=== PATIENT | male | born 1985 | race Caucasian/White ===

== ENCOUNTER 2025-04-16 10:54 | Inpatient (IN) ==
--- NOTE | 2025-04-16 11:22 | Emergency Department Note ---
Impression & Plan Suicidal ideations, Thoughts of self-harm, Marijuana abuse ED Provider Note NAME: WENCESLAO LEOS AGE: 39 SEX: M : 1985 ARRIVES VIA: [employer] INFORMANT: Patient ED PROVIDER(S): Jonathan Kim DO CHIEF COMPLAINT: Wants to figure out who he is HPI: Patient is a 39-year-old male with a past medical history of esophagitis who presents to the ER brought in by police on a 302 as the felt unsafe. He does have 4 children. He notes that he is trying to find out who he is. He denies any suicidal or homicidal ideations. No auditory visual hallucinations. He notes he stopped going to work and quit his job. He admits to a history of anxiety and trouble sleeping. Denies any history of suicide attempts. Admits to marijuana use. No other drugs or alcohol. ADDITIONAL HISTORY OBTAINED: Per HPI Chronic Medical/Social Conditions Affecting Care: Per HPI PAST MEDICAL HISTORY:See Below PAST SURGICAL HISTORY:See Below FAMILY HISTORY:See Below SOCIAL HISTORY:See Below HOME MEDICATIONS:See Below ALLERGIES:See Below VITALS:See Below PHYSICAL EXAMINATION: GENERAL: Sitting up in bed, alert, well appearing, well nourished, no distress, non-toxic EYE EXAM: normal conjunctiva. OROPHARYNX: no exudate, no erythema, lips, buccal mucosa, and tongue normal and mucous membranes are moist NECK: supple, no nuchal rigidity, no adenopathy, non-tender LUNGS: Clear to auscultation. Normal chest wall mechanics HEART: no murmurs, S1 normal and S2 normal ABDOMEN: abdomen soft, non-tender, normo-active bowel sounds, no masses, no rebound or guarding. BACK: Back is symmetrical on inspection and there is no deformity, no midline tenderness, no CVA tenderness. SKIN: no rashes and no bruising UPPER EXTREMITIES: upper extremities are grossly normal. LOWER EXTREMITIES: No pitting edema. NEURO EXAM: Normal sensorium, cranial nerves II-XII grossly intact, normal speech, no gross weakness of arms, no gross weakness of legs. PSYCH: Denies any suicidal homicidal ideations. No auditory visual [place] MEDICAL DECISION MAKING: Patient is a 39-year-old male who presents to the ER for suicidal ideations with multiple plans on 302. He is agreeable to coming in on a 201. Labs showed no significant leukocytosis or anemia. BMP along with LFTs bilirubin and TSH was unremarkable. UA was clean. Tox was positive for amphetamines and benzos and marijuana. Alcohol negative. COVID-negative. Patient was accepted to 3 S. and will be admitted. Consults/Care Managements Discussions: Per MDM Triage Nursing notes reviewed. Limited review of prior medical records performed Vital Signs: reviewed and remarkable for no significant abnormalities Differential diagnosis: Mood disorder, infection, hypoglycemia, electrolyte abnormalities, cardiac sources, intracerebral event, toxicologic, trauma, neurologic, as well as other pathologies. ER treatment provided: See below Diagnostics interpreted by me include EKG and cardiac monitoring as listed below: -ECG: none -Laboratory studies:Interpreted by me as stated above in MDM and shown below. Imaging studies: Xrays: As interpreted by me:none CTs show: none Procedures:none Critical Care: None Past Med/Surg History Problem List (Updated 04/16/25 @ 17:30 by Jonathan Kim DO) Marijuana abuse (Acute) Thoughts of self-harm (Acute) Suicidal ideations (Acute) Obstruction of esophagus (Acute) Social History Smoking Status: Current every day smoker Tobacco Type: Cigarettes Preferred Language: Montenegrin Feels Safe at Home: Yes Gender Identity: Male Allergies Allergies Allergy/AdvReac Type Severity Reaction Status Date / Time No Known Allergies Allergy Unverified 10/02/13 01:16 Home Meds Home Medications Medication Instructions Recorded Confirmed DOXYLAMINE SUCCINATE (SLEEP) 25 mg PO HS PRN Sleep ##0 10/01/13 (UNISOM) Results & Data (ED) Vital Signs Vital Signs - 24 hr 04/16/25 11:03 04/16/25 13:27 04/16/25 15:57 Temperature 36.6 C Temperature Source Oral Pulse Rate 82 Pulse Rate [Left] 69 71 Respiratory Rate 16 18 18 Respiratory Effort / Characteristics Non-Labored Spontaneous Non-Labored Spontaneous Respiratory Depth Normal Normal Respiratory Pattern Regular Blood Pressure 136/90 Blood Pressure [Right Arm] 117/76 118/54 L Blood Pressure Mean 105 Blood Pressure Mean [Right Arm] 89 75 Blood Pressure Position Semi-fowlers Blood Pressure Position [Right Arm] Lying Pulse Oximetry 100 98 97 Oxygen Delivery Method Room Air Room Air Room Air Sepsis Recent Fever Within 48 Hours No Sepsis New/Unexplained Change in Mental Status N/A Sepsis Action Taken by Nursing No Action Required Laboratory Data 04/16/25 11:24 04/16/25 11:24 Lab Results 04/16/25 04/16/25 Range/Units 10:27 11:24 WBC 4.84 (4.8-10.8) K/ul RBC 4.56 L (4.70-6.10) M/uL Hgb 14.1 (14.0-18.0) g/dl Hct 40.4 L (42.0-52.0) % MCV 88.6 (80.0-100.0) fL MCH 30.9 (25.0-34.0) pg MCHC 34.9 (32.0-36.0) g/dL RDW Std Deviation 44.9 (36.4-46.3) fL RDW Coeff of Adriana 13.8 (11.5-14.5) % Plt Count 273 (130-400) K/uL MPV 9.1 L (9.4-12.4) fL Immature Gran % (Auto) 0.4 % Neut % (Auto) 50.3 % Lymph % (Auto) 31.8 % [place] % (Auto) 13.8 % Eos % (Auto) 3.1 % Baso % (Auto) 0.6 % Neut # (Auto) 2.43 (1.40-6.50) K/uL Lymph # (Auto) 1.54 (1.20-3.40) K/uL [place] # (Auto) 0.67 H (0.11-0.59) K/uL Eos # (Auto) 0.15 (0.00-0.50) K/uL Baso # (Auto) 0.03 (0.00-0.20) K/uL Immature Gran # (Auto) 0.02 (0.01-0.20) K/uL Sodium 139 (136-145) mmol/L Potassium 4.2 (3.5-5.1) mmol/L Chloride 104 (98-107) mmol/L Carbon Dioxide 27 (21-32) mmol/L Anion Gap 8 (3-11) BUN 19 (6-23) mg/dl Creatinine 1.11 (0.6-1.4) mg/dl Est Cr Clr Drug Dosing Not Reportable eGFR 87.71 BUN/Creatinine Ratio 17.1 (10-20) Glucose 92 (70-99(Fasting)) mg/dl Calcium 10.9 H (8.6-10.3) mg/dl Total Bilirubin 0.7 (0.2-1.0) mg/dl AST 48 H (13-39) U/L ALT 34 (7-52) U/L Alkaline Phosphatase 80 (34-104) U/L Total Protein 8.0 (6.0-8.3) gm/dl Albumin 4.5 (3.4-5.0) gm/dl Globulin 3.5 (2.5-4.0) gm/dl Albumin/Globulin Ratio 1.3 (0.9-2) TSH 1.462 (0.300-4.500) uIu/ml Urine Color Yellow Urine Appearance Clear (Clear) Urine pH 5.0 (4.5-7.5) Ur Specific [place] 1.032 H (1.000-1.030) Urine Protein Trace H (Negative) Urine Glucose (UA) Negative (Negative) Urine Ketones Negative (Negative) Urine Blood Negative (Negative) Urine Nitrite Negative (Negative) Urine Bilirubin Negative (Negative) Urine Urobilinogen Negative (Negative) Ur Leukocyte Esterase Negative (Negative) Urine WBC (Auto) 0-5 (0-5) /hpf Urine RBC (Auto) 0-2 (0-2) /hpf U Hyaline Cast (Auto) 0-2 (0-2) /lpf U Epithel Cells (Auto) 0-2 (0-2) /hpf Urine Bacteria (Auto) None Seen (None Seen) Urine Comment Salicylates < 3.0 L (3.0-30) mg/dl Urine Opiates Screen Neg (Neg) Ur Methadone, Qual Neg (Neg) Urine Fentanyl Screen Neg (Neg) Acetaminophen < 3 L (10-30) ug/ml Urine Barbiturates Neg (Neg) Ur Phencyclidine (PCP) Neg (Neg) U Amphetamin/Meth Scrn Pos H (Neg) MDMA (Ecstasy) Screen Neg (Neg) U Benzodiazepines Scrn Pos H (Neg) Ur Cocaine Metabolite Neg (Neg) U Marijuana (THC) Screen Pos H (Neg) Ethyl Alcohol mg/dL < 10.0 (<10.0) mg/dl SARS-CoV-2, RNA, NAAT NEGATIVE (NEGATIVE) Administered Medications Discontinued Medications Lorazepam (Lorazepam 1 Mg Tab) 1 mg SL NOW STA Stop: 04/16/25 13:15 Last Admin: 04/16/25 13:24 Dose: 1 mg Documented By: MMF Discharge Plan Visit Data Chief Complaint: Mental Health Evaluation Stated Complaint: 302 ED Provider: Jonathan Kim Discharge Problem: Suicidal ideations, Thoughts of self-harm, Marijuana abuse Condition: Fair Forms Stand Alone Forms: [facility], Suicide Prevention Resources Prescriptions Prescriptions: No Action DOXYLAMINE SUCCINATE (SLEEP) (UNISOM) 25 MG tablet 25 mg PO HS PRN (Reason: Sleep) Qty: 0 Referrals Referrals: PCP,NO [Primary Care Provider] -
[2025-04-16 11:57] LABS: Appearance Urine Clear (Clear); Bacteria Urine Automated None Seen (None Seen); Cast Urine Automated 0-2 /lpf (0-2); Epithelial Cell Urine Auto 0-2 /hpf (0-2); Glucose Urine UA Negative (Negative); RBC Urine Automated 0-2 /hpf (0-2); WBC Urine Automated 0-5 /hpf (0-5)
[2025-04-16 12:06] LABS: Hematocrit (blood only) 40.4 % (42.0-52.0); Hemoglobin 14.1 g/dl (14.0-18.0); Immature Granulocytes # (auto) 0.02 K/uL (0.01-0.20); Immature Granulocytes % (auto) 0.4 %; Mean Corpuscular Hemoglobin 30.9 pg (25.0-34.0); Mean Corpuscular Volume 88.6 fL (80.0-100.0); Platelet Count 273 K/uL (130-400); RDW Standard Deviation 44.9 fL (36.4-46.3); Red Blood Count 4.56 M/uL (4.70-6.10); White Blood Count 4.84 K/ul (4.8-10.8)
[2025-04-16 12:23] LABS: Alanine Aminotransferase 34 U/L (7-52); Albumin Globulin Ratio 1.3 (0.9-2); Albumin Level 4.5 gm/dl (3.4-5.0); Alkaline Phosphatase 80 U/L (34-104); Anion Gap 8 (3-11); Bilirubin,Total 0.7 mg/dl (0.2-1.0); Blood Urea Nitrogen 19 mg/dl (6-23); Calcium 10.9 mg/dl (8.6-10.3); Carbon Dioxide 27 mmol/L (21-32); Chloride 104 mmol/L (98-107); Globulin 3.5 gm/dl (2.5-4.0); Glucose 92 mg/dl (70-99(Fasting)); Potassium 4.2 mmol/L (3.5-5.1); Sodium 139 mmol/L (136-145); Total Protein 8.0 gm/dl (6.0-8.3)
[2025-04-16 12:24] LABS: Acetaminophen < 3 ug/ml (10-30); Salicylate < 3.0 mg/dl (3.0-30)
[2025-04-16 12:31] LABS: Amphetamines+Metham, Urine Pos (Neg); MDMA (Ecstacy), Urine Neg (Neg); Marijuana, Urine Pos (Neg)
[2025-04-16 12:38] LABS: Thyroid Stimulating Hormone 1.462 uIu/ml (0.300-4.500)
[2025-04-16] MEDS: LORazepam 1 MG TAB SL STA (13:24)
[2025-04-16] MEDS ORDERED: BISMUTH SUBSALICYLATE 262 MG CHEW PO PRN (16:28)
[2025-04-16] MEDS ORDERED: MAGNESIUM HYDROXIDE SUSP 30 ML UDC PO PRN (16:28)
[2025-04-16] MEDS ORDERED: ACETAMINOPHEN 325 MG TAB PO PRN (16:28)
[2025-04-16] MEDS ORDERED: SODIUM CHLORIDE 0.65% NA SOLN 45 ML (OCEAN) PRN (16:28)
[2025-04-16] MEDS ORDERED: ZOLPIDEM TARTRATE 5 MG TAB PO PRN (17:53)
[2025-04-16] MEDS ORDERED: NICOTINE POLACRILEX 2 MG GUM MT PRN (17:54)
[2025-04-16] MEDS: NICOTINE 14 MG/24 HR PATCH TD SCH (18:21)
[2025-04-16] MEDS: Patient's HEIGHT &/or WEIGHT Needed STA (18:34)
[2025-04-16] MEDS: ZOLPIDEM TARTRATE 5 MG TAB PO ONE (20:53)
[2025-04-17] MEDS: REMOVE NICODERM PATCH SCH (07:59)
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
[2025-04-17] MEDS: SERTRALINE HCL 50 MG TABLET PO SCH (14:05)
[2025-04-17] MEDS: ZOLPIDEM TARTRATE 5 MG TAB PO PRN (23:32)
--- NOTE | 2025-04-18 08:45 | Psychiatric Progress Note ---
Date of Service April 18, 2025 Impression / Recommendations Impression Patient is a 39-year-old father of 4, with significant history of ADHD and trauma impacting development early in childhood and throughout adolescence. he is lacking in developing skills for distress tolerance and emotional regulation as a result. He does also describe significant history of recurrent depression, but has received minimal treatment for that so far. Diagnostically, this looks to be a major depression and not bipolar type. It is of course complicated by his significant ADHD, and trauma responses that can lead to labile behavior. This particular episode seems to be the result of a brewing depression over the past several months, complicated by marital conflict and poor sleep for several days, culminating in a labile expression of his intense frustration and distress with the situation and himself. He made statements that he now retracts, and actually does not recall making, about suicidal ideation. It does sound like the statement that he harmed himself by putting his hand in the Pellet stove is inaccurate; his description sounds like an impulsive act more consistent with ADHD type behavior than self-harming behavior. A: Discussed whether to change Zoloft or give more time. Pt feels symptoms are mild, starting to improve, and feels comfortable giving it more time. Spoke extensively about diagnoses and psychotherapy treatment after he leaves. Also reviewed recs to decrease MJ and xanax use over time. Overall, I spent a total of 40 minutes on this patient's care, including review of chart/records, direct evaluation and counseling of the patient, ordering medication, coordination with nursing, interdisciplinary team meeting, and documentation. (1) Suicidal ideations: (2) Major depression, recurrent: (3) ADHD (attention deficit hyperactivity disorder), combined type: (4) Post traumatic stress disorder (PTSD): Plan 04/18/25: -continue current medications and treatment -support meeting scheduled for Wednesday - likely d/c after. 04/17/25: The patient was admitted to the [facility] ([facility]) on q15 min checks (behavioral with suicide precautions) for safety. The patient wi ll participate in group, recreational, and milieu therapies and will be offered additional individual and family sessions as clinically appropriate. New medications initiated: zoloft 25mg daily Continue the following home medications: xanax 0.5mg TID PRN ambien 5mg HS PRN The following PRN medications will be started as well: hydroxyzine PRN for anxiety or insomnia Pepto, milk of mag, Imodium PRN GI distress Tylenol PRN pain Inventory Assets Strengths: desire for self-improvement uses medications appropriately Needs: emotional regulation and distress tolerance skills medication adjustment outpatient providers Suicide Risk Level Suicide Risk Level: Moderate (q15 min suicide checks) Suicide Risk Level Comments: Moderate due to patient reporting suicidal ideation before admission, and ongoing depression with baseline history of labile behavior. He does report he feels safe on the unit and no longer has suicidal thoughts. He also reports he can contact staff if he feels unable to maintain safety. Risk Factors Assessment Male: Yes : Yes Do You Have Access To A Gun?: Yes ( None at his current home. Does have guns at their [place] home.) Health Problems: Yes Mental Health Diagnoses: Yes Substance Use Disorders: No Previous Attempt: No Family History of Suicide: No Previous Psychiatric Hospitalization: No Hopelessness: No Protective Factors Assessment Employed: No Interval History Chief Complaint "[]". Review of Systems Sleep Information Total Hours of Sleep: 6 Meal Information Percent Meal Consumed - Breakfast: 100 Percent Meal Consumed - Lunch: 100 Percent Meal Consumed - Dinner: 75 Subjective Subjective Patient was seen & assessed and interval progress reviewed with treatment team per report: irritable and tearful during the day had PRN hydroxyzine improved some in the evening positive visit with his attended all programming rated mood "relieved" and 8/10 reported shoulder pain - offered heating pad and tylenol, which he declined I met with the patient privately in his room. Discussed his symptom questionnaires at length. Also reviewed criteria for PTSD. Pt does endorse hypervigilance, intrusive thoughts and memories, and avoidance of situations that trigger memories. Explored some of his past trauma - pt relayed that his father's and his friend's were the most significant. Pt is starting to feel better emotionally. He says knowing his discharge date has helped him focus on other things, like participating in groups/programing. He does report nausea and diarrhea x 2 since starting Zoloft yesterday. He seemed to tolerate lunch a bit better today. Denies SI. Anxiety present. NO parnaoia or AVH. Physical Exam Psychiatric Orientation: alert, oriented x 3 and cooperative Apperance: appropriately dressed, appropriately groomed and appeared stated age Eye Contact: good eye contact Motor Behavior: steady gait and station and no abnormal motor movements Speech: normal rate/rhythm/volume of speech Affect: + tearful affect, + constricted affect and mood congruent with affect Mood: + depressed mood Thought Process: goal directed thought process, clear/coherent thought process and + circumstantial thought process Thought Content: + cognitive distortions; no delusions Suicidal Thoughts: denies suicidal thoughts, denies suicidal plan and denies suicidal intent Homicidal Thoughts: denies homicidal thoughts, denies homicidal plan and denies homicidal intent Hallucinations: no auditory hallucinations and no visual hallucinations Cognition: language grossly intact; + attention not intact ( Distracted at times) Estimated Intelligence: average estimated intelligence and consistent with education level Insight: + limited insight Judgment: + limited judgement Vital Signs (Past 24 Hours) Last Vital Signs Temp 36.6 C 04/18/25 06:24 Pulse 70 04/18/25 06:25 Resp 16 04/18/25 06:24 BP 113/67 04/18/25 06:25 Pulse Ox 98 04/16/25 18:21 O2 Del Method Room Air 04/16/25 18:21 Results & Data ([facility]) Current Inpatient Medications Current Inpatient Medications: Current Inpatient Medications Acetaminophen (Acetaminophen 325 Mg Tab) 650 mg PO Q4H PRN PRN Reason: Headache or Minor Fever Stop: 05/16/25 16:27 Al Hydrox/Mg Hydrox/Simethicone (Aluminum/Magnesium Susp 30 Ml Udc) 30 ml PO Q4H PRN PRN Reason: GI Upset Stop: 05/16/25 16:27 Alprazolam (Alprazolam 0.5 Mg Tablet) 0.5 mg PO TID PRN PRN Reason: Anxiety/Insomnia Stop: 05/17/25 12:40 Last Admin: 04/17/25 23:32 Dose: 0.5 mg Bismuth Subsalicylate (Bismuth Subsalicylate 262 Mg Chew) 2 tab PO Q30M PRN PRN Reason: Loose Stool/Diarrhea Stop: 05/16/25 16:27 Hydroxyzine HCl (Hydroxyzine Hcl 25 Mg Tab) 50 mg PO HSZ PRN PRN Reason: Insomnia Stop: 05/16/25 16:27 Hydroxyzine HCl (Hydroxyzine Hcl 25 Mg Tab) 25 mg PO Q4H PRN PRN Reason: Anxiety Stop: 05/16/25 16:27 Last Admin: 04/17/25 19:44 Dose: 25 mg Magnesium Hydroxide (Magnesium Hydroxide Susp 30 Ml Udc) 30 ml PO DAILY PRN PRN Reason: Constipation Stop: 05/16/25 16:27 Miscellaneous (Remove Nicoderm Patch) 1 each N/A DAILY@0859 [facility] Stop: 05/17/25 08:58 Last Admin: 04/18/25 07:50 Dose: 1 each Nicotine (Nicotine 14 Mg/24 Hr Patch) 1 patch TD QAM [facility] Stop: 05/16/25 17:59 Last Admin: 04/18/25 07:50 Dose: 1 patch Nicotine Polacrilex (Nicotine Polacrilex 2 Mg Gum) 2 piece MT Q2H PRN PRN Reason: tobacco withdrawal Stop: 05/16/25 17:53 Sertraline HCl (Sertraline Hcl 50 Mg Tablet) [facility] Stop: 05/17/25 12:44 Last Admin: 04/18/25 07:47 Dose: 25 mg Sodium Chloride (Sodium Chloride 0.65% Na Soln 45 Ml ([place])) 1 - 2 sprays NA PRN PRN PRN Reason: Nasal Dryness/Congestion Stop: 05/16/25 16:27 Zolpidem Tartrate (Zolpidem Tartrate 5 Mg Tab) 5 mg PO HS PRN PRN Reason: Sleep Stop: 05/17/25 12:40 Last Admin: 04/17/25 23:32 Dose: 5 mg Mental Health & Subst Abuse Tx Therapist Name of Therapist: n/a Dermatology Physician Assistant Name of Dermatology Physician Assistant: n/a Post Discharge Appointments Primary Care Physician Name Of Family Doctor/PCP: Dr. Maxwell Arnold Date of Future Appointment with PCP: 05/01/25 Time of Appointment with PCP: 10:20pm
[2025-04-18] MEDS: ALUMINUM/MAGNESIUM SUSP 30 ML UDC PO PRN (09:54)
--- NOTE | 2025-04-19 08:45 | Psychiatric Progress Note ---
Date of Service April 19, 2025 Impression / Recommendations Impression Patient is a 39-year-old father of 4, with significant history of ADHD and trauma impacting development early in childhood and throughout adolescence. he is lacking in developing skills for distress tolerance and emotional regulation as a result. He does also describe significant history of recurrent depression, but has received minimal treatment for that so far. Diagnostically, this looks to be a major depression and not bipolar type. It is of course complicated by his significant ADHD, and trauma responses that can lead to labile behavior. This particular episode seems to be the result of a brewing depression over the past several months, complicated by marital conflict and poor sleep for several days, culminating in a labile expression of his intense frustration and distress with the situation and himself. He made statements that he now retracts, and actually does not recall making, about suicidal ideation. It does sound like the statement that he harmed himself by putting his hand in the Pellet stove is inaccurate; his description sounds like an impulsive act more consistent with ADHD type behavior than self-harming behavior. A: Pt tolerating Zoloft better today. Having a migraine, which could be a side effect, but also could be related to caffeine withdrawal, and he does also have hx of migraines. Advised tylenol and a small amount of caffeine. Continue on Zoloft. He continues to work on his treatment plan. Planning for d/c tomorrow after family mtg. Overall, I spent a total of 37 minutes on this patient's care, including review of chart/records, direct evaluation and counseling of the patient, ordering medication, coordination with nursing, interdisciplinary team meeting, and documentation. (1) Suicidal ideations: (2) Major depression, recurrent: (3) ADHD (attention deficit hyperactivity disorder), combined type: (4) Post traumatic stress disorder (PTSD): Plan 04/19/25: - continue current meds and treatment. Encouraged ongoing participation in groups, and working on safety plan. 04/18/25: Continue current medications and treatment. Giving Zoloft more time. 04/17/25: The patient was admitted to the [facility] ([facility]) on q15 min checks (behavioral with suicide precautions) for safety. The patient will participate in group, recreational, and milieu therapies and will be offered additional individual and family sessions as clinically appropriate. New medications initiated: zoloft 25mg daily Continue the following home medications: xanax 0.5mg TID PRN ambien 5mg HS PRN The following PRN medications will be started as well: hydroxyzine PRN for anxiety or insomnia Pepto, milk of mag, Imodium PRN GI distress Tylenol PRN pain Inventory Assets Strengths: desire for self-improvement uses medications appropriately Needs: emotional regulation and distress tolerance skills medication adjustment outpatient providers Suicide Risk Level Suicide Risk Level: Moderate (q15 min suicide checks) Suicide Risk Level Comments: Moderate due to patient reporting suicidal ideation before admission, and ongoing depression with baseline history of labile behavior. He does report he feels safe on the unit and no longer has suicidal thoughts. He also reports he can contact staff if he feels unable to maintain safety. Risk Factors Assessment Male: Yes : Yes Do You Have Access To A Gun?: Yes ( None at his current home. Does have guns at their [place] home.) Health Problems: Yes Mental Health Diagnoses: Yes Substance Use Disorders: No Previous Attempt: No Family History of Suicide: No Previous Psychiatric Hospitalization: No Hopelessness: No Protective Factors Assessment Employed: No Interval History Identifying Information WENCESLAO LEOS is a 39-year-old M who currently lives with his and their four children, has a history of ADHD and insomnia, and was admitted on 04/16/25 17:48 on a 201 voluntary commitment for SI and agitated behavior in context of marital conflict. Chief Complaint "I'm doing better". Review of Systems Sleep Information Total Hours of Sleep: 6 Meal Information Percent Meal Consumed - Breakfast: 100 Percent Meal Consumed - Lunch: 100 Percent Meal Consumed - Dinner: 80 Subjective Subjective Patient was seen & assessed and interval progress reviewed with nursing and social work per report: slept 6hr requested xanax and ambien QHS going to groups more engaged in milieu mood 9.75/10 and "elated" Gi upset in AM - received tums and maalox therapy intake scheduled on 04/23 calls in frequently support mtg at 9:30 tomorrow I met with the pt privately in his room. He was having a migraine, but says this is not uncommon when "I've been emotionally drained". He also drinks caffeine at home, and has had none here. He does say he is feeling better. He is has been attending groups and pointed out several handouts that have been helpful. Discussed his plans for accepting more help when he leaves, so that he can be there for his family. He denies any further diarrhea or stomach upset. No SI. Anxiety persists, but is manageable. Physical Exam Psychiatric Orientation: alert, oriented x 3 and cooperative Apperance: appropriately dressed, appropriately groomed and appeared stated age Eye Contact: good eye contact Motor Behavior: steady gait and station and no abnormal motor movements Speech: normal rate/rhythm/volume of speech Affect: + depressed affect, + tearful affect, + constricted affect and mood congruent with affect Mood: + depressed mood Thought Process: goal directed thought process, clear/coherent thought process and + circumstantial thought process Thought Content: + preoccupation and + cognitive distortions; no delusions Suicidal Thoughts: denies suicidal thoughts, denies suicidal plan and denies suicidal intent Homicidal Thoughts: denies homicidal thoughts, denies homicidal plan and denies homicidal intent Hallucinations: no auditory hallucinations and no visual hallucinations Cognition: language grossly intact; + attention not intact ( Distracted at times) Estimated Intelligence: average estimated intelligence Insight: + fair insight Judgment: + fair judgement Vital Signs (Past 24 Hours) Last Vital Signs Temp 36.5 C 04/19/25 06:13 Pulse 62 04/19/25 06:14 Resp 16 04/19/25 06:13 BP 109/68 04/19/25 06:14 Pulse Ox 98 04/16/25 18:21 O2 Del Method Room Air 04/16/25 18:21 Results & Data ([facility]) Current Inpatient Medications Current Inpatient Medications: Current Inpatient Medications Acetaminophen (Acetaminophen 325 Mg Tab) 650 mg PO Q4H PRN PRN Reason: Headache or Minor Fever Stop: 05/16/25 16:27 Al Hydrox/Mg Hydrox/Simethicone (Aluminum/Magnesium Susp 30 Ml Udc) 30 ml PO Q4H PRN PRN Reason: GI Upset Stop: 05/16/25 16:27 Last Admin: 04/18/25 09:54 Dose: 30 ml Alprazolam (Alprazolam 0.5 Mg Tablet) 0.5 mg PO TID PRN PRN Reason: Anxiety/Insomnia Stop: 05/17/25 12:40 Last Admin: 04/18/25 23:05 Dose: 0.5 mg Bismuth Subsalicylate (Bismuth Subsalicylate 262 Mg Chew) 2 tab PO Q30M PRN PRN Reason: Loose Stool/Diarrhea Stop: 05/16/25 16:27 Hydroxyzine HCl (Hydroxyzine Hcl 25 Mg Tab) 50 mg PO HSZ PRN PRN Reason: Insomnia Stop: 05/16/25 16:27 Hydroxyzine HCl (Hydroxyzine Hcl 25 Mg Tab) 25 mg PO Q4H PRN PRN Reason: Anxiety Stop: 05/16/25 16:27 Last Admin: 04/17/25 19:44 Dose: 25 mg Magnesium Hydroxide (Magnesium Hydroxide Susp 30 Ml Udc) 30 ml PO DAILY PRN PRN Reason: Constipation Stop: 05/16/25 16:27 Miscellaneous (Remove Nicoderm Patch) 1 each N/A DAILY@0859 [facility] Stop: 05/17/25 08:58 Last Admin: 04/18/25 07:50 Dose: 1 each Nicotine (Nicotine 14 Mg/24 Hr Patch) 1 patch TD QAM [facility] Stop: 05/16/25 17:59 Last Admin: 04/18/25 07:50 Dose: 1 patch Nicotine Polacrilex (Nicotine Polacrilex 2 Mg Gum) 2 piece MT Q2H PRN PRN Reason: tobacco withdrawal Stop: 05/16/25 17:53 Sertraline HCl (Sertraline Hcl 50 Mg Tablet) 25 mg PO QAM [facility] Stop: 05/17/25 12:44 Last Admin: 04/18/25 07:47 Dose: 25 mg Sodium Chloride (Sodium Chloride 0.65% Na Soln 45 Ml ([place])) 1 - 2 sprays NA PRN PRN PRN Reason: Nasal Dryness/Congestion Stop: 05/16/25 16:27 Zolpidem Tartrate (Zolpidem Tartrate 5 Mg Tab) 5 mg PO HS PRN PRN Reason: Sleep Stop: 05/17/25 12:40 Last Admin: 04/18/25 23:05 Dose: 5 mg Mental Health & Subst Abuse Tx Therapist Name of Therapist: Jannie Melendez ([facility]) Therapist's Date of Therapist Appointment: 04/23/25 Time of Therapist Appointment: 2PM Therapy Appointment Comment: Virtual Student Nurse Name of Student Nurse: n/a Post Discharge Appointments Primary Care Physician Name Of Family Doctor/PCP: Dr. Maxwell Arnold Primary Care Date of Future Appointment with PCP: 05/01/25 Time of Appointment with PCP: 10:20pm Provider Appointment Comment: [id number] [place] [id number] Contact Information Discharge Discharge Address: [address] [place], [place] [id number]
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
[2025-04-20 11:42] LABS: 7-Aminoclonaz, Confirm NEGATIVE ng/mL (<25); Amphetamine Urine, Confirm 9547 ng/mL (<250); Hydro-Alp Ur, GC/MS 839 ng/mL (<25); Hydroxyethylflurazepam, Conf NEGATIVE ng/mL (<50); Hydroxymidazolam Ur, GC/MS NEGATIVE ng/mL (<50); Lorazepam, Ur GC/MS NEGATIVE ng/mL (<50); Marijuana Quant, GCMS Urine 596 ng/mL (<5); Methamphetamine, Ur Confirm NEGATIVE ng/mL (<250); Nordiazepam, Confirm NEGATIVE ng/mL (<50); Oxazepam Ur, GC/MS NEGATIVE ng/mL (<50); Temazepam, Confirm NEGATIVE ng/mL (<50)
== END 2025-04-20 10:40 | disposition home or self-care (01) | DRG 885 ==
LOC: ED 10:54 → 3S 17:44